=== PATIENT | male | born 1985 | race Caucasian/White ===

== ENCOUNTER → 2020-06-23 | Emergency (ER) | payer SELFPAY ==
[~2020-06-23] VITALS: Ht 177.8 cm; Wt 99.8 kg
== END ==
LOC: ED 19:32
DX: R10.11 Right upper quadrant pain (principal); F11.23 Opioid dependence with withdrawal; F19.10 Other psychoactive substance abuse, uncomplicated; Z87.81 Personal history of (healed) traumatic fracture
CPT/HCPCS: 80053; 81001; 83690; 83735; 99284; G0480

== ENCOUNTER 2021-01-02 15:37 | Emergency (ER) | payer OTHER ==
[~2021-01-02] VITALS: Ht 180.3 cm; Wt 95.2 kg
[2021-01-02] MEDS ORDERED: BACTRIM DS TAB1 EACH PO (17:08)
== END 2021-01-02 17:21 | disposition home or self-care (01) ==
LOC: ED 15:37
PROC: 0H9HXZZ Drainage of Right Upper Leg Skin, External Approach (ICD-10-PCS; principal; 2021-01-02)
DX: L02.415 Cutaneous abscess of right lower limb (principal); F17.200 Nicotine dependence, unspecified, uncomplicated
CPT/HCPCS: 10061; 87070; 87075; 87076; 87077; 87185; 87186; 87205; 99283-25

== ENCOUNTER 2022-10-25 08:12 | Emergency (ER) | payer OTHER ==
[~2022-10-25] VITALS: Ht 180.3 cm; Wt 88.3 kg
[~2022-10-25 08:12] MED LIST: BACTRIM DS TAB1 EACH PO
--- OUTSIDE RECORDS SUMMARY | 2022-10-25 08:15 | XMS ---
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 Forrest has no Care Guidelines for this patient. Pavan VISIT COUNT (12 MO.) 1 JAMES Pathak TOTAL 1 NOTE: Visits indicate total known visits. ED/UCC VISIT TRACKING (12 MO.) 10/25/2022 08:13 JAMES Rojas OR TYPE: Emergency COMPLAINT: - R MIDDLE FINGER WOUND INPATIENT VISIT TRACKING (12 MO.) No inpatient visits to display in this time frame [email or web address]
[2022-10-25] MEDS ORDERED: METHADONE HCL40 MG PO (08:24)
[2022-10-25] MEDS ORDERED: CEPHALEXIN500 M1 PO (08:32)
== END 2022-10-25 09:34 | disposition home or self-care (01) ==
LOC: ED 08:12
DX: L02.511 Cutaneous abscess of right hand (principal); F17.200 Nicotine dependence, unspecified, uncomplicated; Z79.899 Other long term (current) drug therapy
CPT/HCPCS: 26010; 73140; 90471; 90714; 99283-25; A9270